=== PATIENT | male | born 1955 | race African-American/Black ===

== ENCOUNTER 2017-03-31 19:39 | Inpatient (IN) | payer OTHER ==
[~2017-03-31] VITALS: Ht 165.1 cm; Wt 62.1 kg
--- NOTE | ~2017-03-31 | EKG ---
[address] [address] ELECTROCARDIOGRAM REPORT Name: CORINA LEON Room #: 210-[facility] IN .R.#: [id number] Admission: 03/31/17 Attend Phys: Shivam Caballero MD Discharge: Date of : 55 Report #: [id number] THIS REPORT FOR: //name// [facility] Test Date: 2017-04-03 Test Time: 08:09:50 Pat Name: CORINA LEON Department: Room: 210 Gender: M Help Desk Consultant: KELLY : 1955 Requested By: Arias Montesinos Order Number: [id number] MD: Chidi Anthony Measurements Intervals [place] Rate: 82 P: 64 ME: 139 QRS: 24 QRSD: 78 T: 59 QT: 387 QTc: 452 Interpretive Statements Sinus rhythm Abnormal T, unchanged Minimal ST elevation, inferior leads Electronically Signed On 04-04-2017 22:19:37 CDT by Chidi Anthony [email or web address] <ELECTRONICALLY SIGNED> By: Chidi Anthony MD 04/04/17 2219 0809 8 Chidi Anthony MD /ADÁN
--- NOTE | ~2017-03-31 | EKG ---
[address] [place] [address] ELECTROCARDIOGRAM REPORT Name: CORINA LEON Room #: 218-P ADM IN M.R.#: [id number] Admission: 03/31/17 Attend Phys: Shivam Caballero MD Discharge: Date of : 55 Report #: [id number] THIS REPORT FOR: //name// [facility] Test Date: 2017-04-01 Test Time: 08:57:52 Pat Name: CORINA LEON Department: Room: 218 P Gender: M Research Staff Member: loc : 1955 Requested By: Erika Oranets Order Number: [id number] MD: Measurements Intervals [place] Rate: 83 P: 136 [place]: 146 QRS: 38 QRSD: 78 T: 119 QT: 438 QTc: 515 Interpretive Statements Sinus or ectopic atrial rhythm Borderline low voltage, extremity leads Abnormal T, consider ischemia, anterior leads Prolonged QT interval Compared to ECG 03/31/2017 19:53:57 Ectopic atrial rhythm now present Possible ischemia now present Prolonged QT interval now present Sinus rhythm no longer present T-wave abnormality still present [email or web address] By: 0857 0857 [place] /EPI
--- NOTE | ~2017-03-31 | 2DMMODE ---
[facility] [place] [address] 2 D/M-MODE ECHOCARDIOGRAM Name: CORINA LEON Room #: 218-P [facility] IN .R.#: [id number] Admission: 03/31/17 Attend Phys: Shivam Caballero Discharge: Date of : 55 Date of Service: 04/01/17 1401 Report #: [id number] THIS REPORT FOR: //name// APPROVED REPORT Study performed: 04/01/2017 11:38:41 EXAM: Comprehensive 2D, Doppler, and color-flow Echocardiogram Patient Location: Bedside Room #: 218 Blood Pressure: 156/86 mmHg HR: 66 bpm Rhythm: Irregular Other Information Study Quality: Fair Technically limited study due to lung artifact and limited mobility; patient status post Cath. Indications Pre-Op CABG, NSTEMI. Hx: HLP 2D Dimensions RVDd: 29.16 mm LVEF(%): 48.86 (>50%) IVSd: 12.00 (7-11mm) LVOT Diam: 19.78 (18-24mm) LVDd: 44.40 mm PWd: 11.59 (7-11mm) Ascending Ao: 29.92 (22-36mm) LVDs: 33.52 (25-40mm) Aortic Root: 28.58 mm Kruse's LVEF: 48.86 % Volumes Left Atrial Volume (Systole) Single Plane 4CH: 23.63 mL Single Plane 2CH: 30.43 mL Aortic Valve AoV Peak Clinton.: 1.47 m/s AO Peak Gr.: 8.69 mmHg LVOT Max P.44 mmHg LVOT Max V: 1.05 m/s JAKE Vmax: 2.20 cm2 Mitral Valve [facility] [place] [address] [place] [address] 2 D/M-MODE ECHOCARDIOGRAM Name: CORINA LEON Tonny Room #: 218-P [facility] IN ..#: [id number] Admission: 03/31/17 Attend Phys: Shivam Caballero Discharge: Date of : 55 Date of Service: 04/01/17 1401 Report #: [id number] E/A Ratio: 0.8 MV Decel. Time: 263.00 ms MV E Max Clinton.: 0.58 m/s MV A Clinton.: 0.72 m/s MV PHT: 76.27 ms IVRT: 92.27 ms Tricuspid Valve RAP Estimate: 5.00 mmHg Left Ventricle The left ventricle is normal size. Mild concentric left ventricular hypertrophy. Left ventricular systolic function is normal. LVEF is 50%. Right Ventricle The right ventricle is normal size. The right ventricular systolic function is normal. Atria The left atrium size is normal. The right atrium size is normal. Aortic Valve The aortic valve is normal in structure. No aortic regurgitation is present. There is no aortic valvular stenosis. Mitral Valve The mitral valve is normal in structure. There is no mitral valve regurgitation noted. No evidence of mitral valve stenosis. Tricuspid Valve The tricuspid valve is normal in structure. There is no tricuspid valve regurgitation noted. Pulmonic Valve Pulmonic valve is not well visualized. Great Vessels The aortic root is normal in size. The ascending aorta is normal in size. IVC is normal in size and collapses >50% with inspiration. Pericardium There is no pericardial effusion. [facility] [place] [address] 2 D/M-MODE ECHOCARDIOGRAM Name: CORINA LEON Room #: 218-P [facility] IN .R.#: [id number] Admission: 03/31/17 Attend Phys: Shivam Caballero Discharge: Date of : 55 Date of Service: 04/01/17 1401 Report #: [id number] <Conclusion> The left ventricle is normal size. Mild concentric left ventricular hypertrophy. Left ventricular systolic function is normal. The right ventricle is normal size. The left atrium size is normal. The aortic valve is normal in structure. The mitral valve is normal in structure. There is no pericardial effusion. <ELECTRONICALLY SIGNED> By: Aubrey Quintero MD 04/01/171400 00 1401 Aubrey Quintero MD /INF
--- NOTE | ~2017-03-31 | EKG ---
[address] [address] ELECTROCARDIOGRAM REPORT Name: CORINA LEON Room [facility]: 210[facility] IN .R.#: [id number] Admission: 03/31/17 Attend Phys: Shivma Caballero MD Discharge: 04/07/17 Date of : 55 Report #: [id number] THIS REPORT FOR: //name// 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 : 1955 Requested By: Juan Barrera Order Number: [id number] MD: Chidi Anthony Measurements Intervals [place] Rate: 76 P: 43 DE: 152 QRS: 45 QRSD: 99 T: 51 QT: 401 QTc: 451 Interpretive Statements Sinus rhythm Abnormal T, consider ischemia, anterior leads ST elevation, consider inferior injury Compared to ECG 04/03/2017 08:09:50 Possible ischemia now present Myocardial infarct finding now present T-wave abnormality still present ST (T wave) deviation still present Electronically Signed On 04-12-2017 7:43:03 CDT by Chidi Anthony [email or web address] <ELECTRONICALLY SIGNED> By: Chidi Anthony MD 04/12/17 0743 1328 1328 Chidi Anthony MD /EPI
--- NOTE | ~2017-03-31 | O ---
[facility] [place] [address] OPERATIVE REPORT Name: CAROLYNCORINA CHAPIN Tonny ESPINOZA Room #: 210-P [facility] IN ..#: [id number] Admission: 03/31/17 Attend Phys: Shivam Caballero MD Discharge: 04/07/17 Date of : 55 Report #: [id number] THIS REPORT FOR: //name// CC: JANET physician/PCP Shivam Caballero DATE OF SERVICE: 03/31/2017 PREOPERATIVE DIAGNOSIS: Coronary artery disease. POSTOPERATIVE DIAGNOSIS: Coronary artery disease. OPERATION: Coronary artery bypass times 1, left internal mammary artery to left anterior descending artery. SURGEON: Mirza Man MD DRIVER SUPERVISOR: Jaguar. ANESTHESIA: General. INDICATIONS: The patient is a 62-year-old with high grade proximal left anterior descending stenosis, circumflex, have no important disease. Left ventricular function is satisfactory. The patient presents with unstable angina. FINDINGS AND TECHNIQUE: After general anesthesia was established, exposure was obtained through median sternotomy. Left internal mammary artery was harvested from chest wall. Pericardial well was made. Cannulation sutures were placed. Heparin was given. Aorta was cannulated. Right atrium was cannulated. Cardioplegia needle was positioned in the aortic root. Retrograde cardioplegic catheter was placed in coronary sinus. Cardiopulmonary bypass was established. The aorta was cross clamped. Antegrade and retrograde cardioplegia were given. Ice was poured in the pericardial well. The heart was stopped. During electromechanical arrest, the distal anastomosis was performed and end-to-side anastomosis was made between the left internal mammary artery and the left anterior descending artery. This anastomosis was checked with the temperature technique. Warm cardioplegia was given followed by warm continuous blood to the coronary sinusitis. When this infusion was complete, the crossclamp was removed. De-airing maneuvers were performed. The anastomosis was inspected and found to be satisfactory. As the patient warmed, nice cardiac activity resumed, chest tubes and pacing wires were placed. When the patient was warmed, he was weaned from cardiopulmonary bypass. Venous cannula was removed. Protamine was given. The [facility] [address] [place] [address] OPERATIVE REPORT Name: CORINA LEON SR Room #: 210-P [facility] IN ..#: [id number] Admission: 03/31/17 Attend Phys: Shivam Caballero MD Discharge: 04/07/17 Date of : 55 Report #: [id number] aortic cannula was removed. Good Doppler signal was audible in the internal mammary artery. When hemostasis was satisfactory, chest was irrigated with antibiotic solution and closed in the usual fashion. The patient was taken to the intensive care unit in good condition having tolerated the procedure well. By: 190 20 Mirza Man MD /nt
--- NOTE | ~2017-03-31 | EKG ---
[address] [address] ELECTROCARDIOGRAM REPORT Name: CORINA LEON Room #: 242-P ADM IN M.R.#: [id number] Admission: 03/31/17 Attend Phys: Shivam Caballero MD Discharge: Date of : 55 Report #: [id number] THIS REPORT FOR: //name// [facility] Test Date: 2017-04-02 Test Time: 13:55:16 Pat Name: CORINA LEON Department: Room: [facility] Gender: M City Constable: enrique : 1955 Requested By: Arias Montesinos Order Number: [id number] MD: Chidi Anthony Measurements Intervals [place] Rate: 86 P: 64 FL: 154 QRS: 28 QRSD: 86 T: 70 QT: 385 QTc: 461 Interpretive Statements Sinus rhythm Nonspecific T abnrm, anterolateral leads Electronically Signed On 04-02-2017 16:59:01 CDT by Chidi Anthony [email or web address] <ELECTRONICALLY SIGNED> By: Chidi Anthony MD 04/02/17 1659 1355 1355 MD NEGRO Zhu
--- NOTE | ~2017-03-31 | EKG ---
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 : 1955 Requested By: Nisa Montoya Order Number: [id number] MD: Ferny Garcia Measurements Intervals [place] Rate: 83 P: 66 MS: 148 QRS: 46 QRSD: 80 T: 76 QT: 410 QTc: 482 Interpretive Statements Sinus rhythm RSR' in V1 or V2, right VCD or RVH Abnrm T, consider ischemia, anterolateral lds Compared to ECG 04/01/2017 08:57:52 no significant change was found Electronically Signed On 04-02-2017 8:01:00 CDT by Ferny Garcia [email or web address] <ELECTRONICALLY SIGNED> By: Ferny Garcia MD, [facility] 04/02/17 0801 1431 1431 Ferny Garcia MD, [facility] /EPI
--- NOTE | ~2017-03-31 | H ---
[facility] [address] [address] HISTORY AND PHYSICAL Name: CORINA LEON Room #: 210-P ADM IN M.R.#: [id number] Admission: 03/31/17 Attend Phys: Shivam Caballero MD Discharge: Date of : 55 Report #: [id number] THIS REPORT FOR: //name// CC: JANET physician/PCP Shivam Caballero DATE OF SERVICE: 03/31/2017 ATTENDING PHYSICIAN: Dr. Crow. PRIMARY CARE PHYSICIAN: None. CHIEF COMPLAINT: Chest pain. HISTORY OF PRESENT ILLNESS: The patient is a 62-year-old -Pak[place] male who is in the process of moving back to [place] from [place]. In the process of moving, he has been having some intermittent episodes of chest pain that had been occurring only when he is exerting himself. He states that is in his midsternum and he feels like someone is stepping on his chest. He does have associated diaphoresis and shortness of breath with this. He denies any associated vomiting, but has been nauseous and he does not have any radiation of the pain. When he experiences this, he usually sits and rest and eventually his pain goes away. He had another episode today after he was moving some boxes. He denies any prior cardiac history. He has never had a stress test or cardiac evaluation in the past. Episodes of chest pain started happening around [place] and he has had at least 3 episodes of chest pain this week. He is on medications for hyperlipidemia. He has never been on any blood pressure medication. He was given some aspirin in the ER and has not had any recurrence of the pain. PAST MEDICAL HISTORY: Prostate cancer, hyperlipidemia. PAST SURGICAL HISTORY: Right above knee amputation, right total knee replacement prior to his amputation and multiple left leg surgeries including multiple knee surgeries and lien placement in his knee joint, making him unable to bent his left knee. ALLERGIES: METHACARBANOL causes unknown reaction and SHELLFISH, unknown reaction. HOME MEDICATIONS: Simvastatin 20 mg p.o. at bedtime and Zyrtec daily, hydroxyzine 25 mg at bedtime p.r.n., diclofenac, potassium p.r.n. and Pataday eyedrops 1 drop at bedtime. SOCIAL HISTORY: The patient had been a smoker, he quit just last year after smoking up to a pack and a half per day for at least 45 years. He is a [facility] [address] [place] [address] HISTORY AND PHYSICAL Name: CORINA LEON Room #: 210-P [facility]#: [id number] Admission: 03/31/17 Attend Phys: Shivam Caballero MD Discharge: Date of : 55 Report #: [id number] and he does drink alcohol regularly. He drinks 3-4 20 ounce Smirnoff coolers each day. He denies any drug use. In the process of moving back to [place] from [place], he is now living with his ex- and his daughters. He does ambulate using crutches. FAMILY HISTORY: His mother from possibly heart problems. He knows she did have a pacemaker and was also diabetic. His father is , he does not really know why. REVIEW OF SYSTEMS: He has been evaluated in [place] for prostate cancer. He actually says this was diagnosed 10 years ago, but he has never gone through any treatment. He is not really clear why, as far as he can remember his PSA level is 17.5 and that he did see a urologist when he was in [place] and they did some sort of procedure in which he found "two spots." He has never had any radiation treatment or surgery, but says both of these options have been presented to him, since he knew he is moving to [place] he wanted to find a new urologist and discuss the treatment options with his family. All other 12-point review of systems was reviewed with the patient, otherwise negative unless stated in the HPI. PHYSICAL EXAMINATION: GENERAL: The patient is an alert male in no acute distress. VITAL SIGNS: Temperature is 36.9, heart rate 75, respirations 11, blood pressure is 174/102, oxygen 99% on room air. HEENT: PERRLA. Sclerae is nonicteric. Oral mucosa is pink and moist. NECK: Supple, no JVD noted. CARDIOVASCULAR: Normal S1, S2. No murmurs, rubs or gallops. RESPIRATORY: Breath sounds are clear bilaterally. No wheezing or rhonchi. Breathing is nonlabored. ABDOMEN: Soft, round, nontender, nondistended with positive bowel sounds. VASCULAR: Trace bilateral lower extremity edema noted. Pedal pulses are 2+. NEUROLOGIC: The patient is alert and oriented x 3. Speech is clear. He is answering questions appropriately and following commands. No focal weakness noted. LABORATORY DATA AND DIAGNOSTICS: WBC is 16.1, hemoglobin 14.5, platelets 255, sodium 142, potassium 3.3, BUN 11, creatinine 1.3, glucose 131 and LFTs are within normal limits. Troponin is 0.73, EKG showing some sinus rhythm, biphasic T waves in leads V2 and V3, which are nonspecific and chest x-ray was negative. ASSESSMENT AND PLAN: 1. Non-ST elevation myocardial infarction. The patient does have anginal equivalent of chest pain. We will go ahead and check serial cardiac enzymes and consult cardiology. He was given aspirin in the ER and no further blood thinners were requested by Cardiology, continue to monitor on telemetry. 2. Hypertension. The patient is not on any blood pressure medications. We [facility] [address] [place] [address] HISTORY AND PHYSICAL Name: CORINA LEON Room #: 210-P [facility] IN [facility].#: [id number] Admission: 03/31/17 Attend Phys: Shivam Caballero MD Discharge: Date of : 55 Report #: [id number] will add hydralazine p.r.n. and evaluate for the need to start any antihypertensives while he is here. 3. Prostate cancer. The patient is needing to finding a urologist here in [place] where he can establish care and treatment options 4. Hyperlipidemia. Check a lipid panel and continue statin. 5. Alcohol use. We will monitor for any signs of withdrawal. 6. Hypokalemia. This will be replaced. Repeat labs in the morning. 7. Deep venous thrombosis prophylaxis, place sequential compression devices. We will continue to follow the patient closely throughout the hospitalization and make changes based on clinical status. <ELECTRONICALLY SIGNED> By: CHEYANNE Martin 04/05/17 0604 0520 0632 Erika Orantes, PRODUCTION SORTER /nt
--- NOTE | ~2017-03-31 | EKG ---
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
--- NOTE | ~2017-03-31 | CATHLAB ---
[facility] [place] [place] [address] INVASIVE PROCEDURE REPORT Name: CORINA LEON SR Room #: 210-P [facility]#: [id number] Admission: 03/31/17 Attend Phys: Shivam Caballero Discharge: 04/07/17 Date of : 55 Date of Service: 04/14/17 0926 Report #: [id number] THIS REPORT FOR: //name// CC: JANET physician/PCP Shivam Caballero DATE OF SERVICE: 04/01/2017 INDICATIONS: This is a 62-year-old male patient with a non-ST segment elevation myocardial infarction. PROCEDURES: 1. Left heart catheterization. 2. Selective left and right coronary angiography. 3. Measurement of left ventricular end diastolic pressures. 4. Supervision of conscious sedation. GARBAGE PICK UP WORKER: Gonzalo Lock M.D. BRIEF DESCRIPTION OF PROCEDURE: After informed consent was obtained, the patient was brought to the cardiac catheterization laboratory in stable condition. The patient's right groin was prepped and draped in the usual sterile manner after which lidocaine was then instilled. Utilizing a modified Seldinger technique, the right femoral artery was then accessed. Under fluoroscopic visualization using selective coronary catheters, the right and left coronaries were opacified and visualized. The left ventriculogram was likewise imaged per standard protocol with EDP being measured. Subsequent to this, the sheath was removed, hemostasis achieved. The patient tolerated the procedure well. There were no complications. FINDINGS: 1. RHYTHM: The patient's rhythm was sinus throughout the entire procedure. 2. HEMODYNAMICS: A. Aortic pressure 164/84. B. Left ventricular end diastolic pressure 8-10. 3. FLUOROSCOPY: Under fluoroscopic visualization, there was evidence of extensive calcific plaquing along the epicardial coronary arteries. There was no significant plaquing along the valvular or intramyocardial structures of the heart. 4. ANGIOGRAPHY: This is a left dominant system. A. Left main is normal in origin and caliber, bifurcates in left anterior descending, left circumflex is free of high-grade disease. B. Left anterior descending is a moderate caliber type 3 vessel which courses in the anterior interventricular sulcus. At the origin of the proximal LAD, there is a 90% eccentric lesion which is perpendicular to the initial portion of the vessels. Beyond this, the vessel reconstitutes itself giving rise to [facility] [address] [place] [address] INVASIVE PROCEDURE REPORT Name: CORINA LEON Tonny ESPINOZA Room #: 210-P [facility] IN [facility].#: [id number] Admission: 03/31/17 Attend Phys: Shivam Caballero Discharge: 04/07/17 Date of : 55 Date of Service: 04/14/17 0926 Report #: [id number] diagonal and septal branches, all of which are free of high-grade disease as they course towards the apex and terminates in the left ventricular inferoposterior apical wall. C. Left circumflex: This is a moderate caliber vessel, which courses laterally in the AV groove giving rise to marginal branches free of high-grade disease. D. Right coronary artery is a small to moderate caliber vessel, which has a moderate lesion giving rise to RV marginal branch. IMPRESSION: 1. Coronary artery disease, single vessel, significant, a poor candidate for percutaneous revascularization. 2. Normal hemodynamics. RECOMMENDATIONS: In view of the patient having a lesion, which is best treated fci with bypass grafting, surgical consultation was obtained. <ELECTRONICALLY SIGNED> By: Gonzalo Lock MD 04/15/17 2113 0926 1420 Gonzalo Lock MD /nt
[2017-03-31 19:48] VITALS: BP 174/102
[2017-03-31] MEDS ORDERED: ALL DAY ALLERGY10 M3 (20:03)
[2017-03-31] MEDS ORDERED: ZOCOR20 MG PO (20:03)
[2017-03-31] MEDS ORDERED: DICLOFENAC POTA50 MG (20:04)
[2017-03-31] MEDS ORDERED: HYDROXYZINE HCL25 M1 (20:04)
[2017-03-31] MEDS ORDERED: PATADAY2.5 ML OPHTHALMIC (20:05)
[2017-03-31 20:17] LABS: ABSOLUTE NEUTROPHILS 8.9 thou/uL (1.4-8.2); BASOPHILS 1.3 % (0.0-2.0); EOSINOPHILS 0.8 % (0.0-3.0); HEMATOCRIT 41.7 % (42.0-52.0); HEMOGLOBIN 14.5 gm/dL (14.0-18.0); MCH 32.9 pg (26.0-34.0); MCHC 34.7 g/dL (28.0-37.0); MCV 94.8 fL (80.0-100.0); MONOCYTES 9.4 % (1.0-8.0); PLATELET COUNT 255 thou/uL (150-400); POLYS 55.5 % (36.0-66.0); RDW 13.8 % (10.5-14.5); WBC 16.1 thou/uL (4.0-11.0)
[2017-03-31 20:20] LABS: MANUAL DIFF NO
[2017-03-31 20:23] LABS: ANION GAP 14 mmol/L (7-16); BUN 11 mg/dL (7-18); CALCIUM 8.9 mg/dL (8.5-10.1); CHLORIDE 105 mmol/L (98-107); CO2 23 mmol/L (21-32); CREATININE 1.3 mg/dL (0.7-1.3); GLUCOSE 131 mg/dL (74-106); POTASSIUM 3.3 mmol/L (3.5-5.1); SODIUM 142 mmol/L (136-145)
[2017-03-31 20:34] LABS: ALBUMIN 3.7 g/dL (3.4-5.0); ALKALINE PHOSPHATASE 116 U/L (46-116); DIRECT BILIRUBIN < 0.1 mg/dL (<0.1-0.3); NT-PRO BRAIN NAT PEPTIDE 53 pg/mL (<300); SGOT 35 U/L (15-37); SGPT 47 U/L (30-65); TOTAL BILIRUBIN 0.3 mg/dL (<0.1-1.0); TOTAL PROTEIN 8.1 g/dL (6.4-8.2)
[2017-03-31 20:36] LABS: TROPONIN-I 0.73 ng/mL (<0.04-0.07)
[2017-03-31 21:26] VITALS: BP 167/86
[2017-03-31 22:03] VITALS: BP 171/83
[2017-04-01] VITALS (13 sets, daily range): BP systolic 124–154; BP diastolic 52–91
[2017-04-01] MEDS ORDERED: ASPIRIN325 PO (00:56)
[2017-04-01 02:24] LABS: ANION GAP 11 mmol/L (7-16); BUN 11 mg/dL (7-18); CALCIUM 8.5 mg/dL (8.5-10.1); CHLORIDE 107 mmol/L (98-107); CHOLESTEROL 157 mg/dL (<200); CO2 24 mmol/L (21-32); GLUCOSE 100 mg/dL (74-106); HDL CHOLESTEROL 45 mg/dL (>40); LDL CHOLESTEROL 97 mg/dL (<100); POTASSIUM 3.5 mmol/L (3.5-5.1); SODIUM 142 mmol/L (136-145); TC:HDL 3.5 Ratio (Not establshd); TRIGLYCERIDE 76 mg/dL (<150); VLDL 15 mg/dL (<40)
[2017-04-01 02:36] LABS: SERUM ASSESSMENT Clear
[2017-04-01 08:56] LABS: CALCIUM 8.8 mg/dL (8.5-10.1); MAGNESIUM 2.2 mg/dL (1.8-2.4); POTASSIUM 3.7 mmol/L (3.5-5.1)
[2017-04-01 09:17] LABS: HEMATOCRIT 42.3 % (42.0-52.0); HEMOGLOBIN 14.7 gm/dL (14.0-18.0); MCH 32.9 pg (26.0-34.0); MCHC 34.8 g/dL (28.0-37.0); MCV 94.7 fL (80.0-100.0); RBC 4.47 mil/uL (4.50-6.00); RDW 13.8 % (10.5-14.5); WBC 12.4 thou/uL (4.0-11.0)
[2017-04-01 09:33] LABS: APTT 27.4 Seconds (24.5-32.8); PROTIME 10.7 Seconds (9.3-11.4)
[2017-04-01 13:39] LABS: HIV-1 P24 AG Nonreactive (Nonreactive)
[2017-04-01 23:11] LABS: HBsAG-EMPLOYEE EXPOSURE Negative (Negative); HCV AB-EMPLOYEE EXPOSURE <0.1 (0.0-0.9)
[2017-04-01 23:27] LABS: URINE BILIRUBIN NEGATIVE (Negative); URINE BLOOD 2+ (Negative); URINE COLOR YELLOW; URINE GLUCOSE-RANDOM* NEGATIVE (Negative); URINE KETONES TRACE (Negative); URINE LEUKOCYTES-REFLEX NEGATIVE (Negative); URINE PROTEIN (DIPSTICK) NEGATIVE (Negative); URINE SPECIFIC GRAVITY 1.025 (1.003-1.035); URINE UROBILINOGEN 0.2 E.U./dl (0.2-1.0)
[2017-04-01 23:35] LABS: AMP/METHAMP Negative (Negative); BARBITURATES Negative (Negative); BENZODIAZEPINES POSITIVE (Negative); COCAINE Negative (Negative); METHADONE Negative (Negative); OPIATES POSITIVE (Negative); PCP Negative (Negative); THC POSITIVE (Negative)
[2017-04-02 01:13] LABS: SQUAMOUS 0-3 Few /LPF (0-3)
[2017-04-02 01:16] LABS: CASTS None Seen /LPF (None Seen); CRYSTALS None Seen /LPF (None Seen); URINE RBC 3-10 Few /HPF (0-2); URINE WBC-REFLEX 0-5 Rare /HPF (0-5)
[2017-04-02 03:10] LABS: HEMATOCRIT 42.5 % (42.0-52.0); HEMOGLOBIN 14.4 gm/dL (14.0-18.0); MCH 32.2 pg (26.0-34.0); MCHC 33.8 g/dL (28.0-37.0); MCV 95.3 fL (80.0-100.0); RBC 4.46 mil/uL (4.50-6.00); RDW 13.6 % (10.5-14.5); WBC 17.7 thou/uL (4.0-11.0)
[2017-04-02 03:15] LABS: GLYCOHEMOGLOBIN (HGB A1C) 5.1 % (4.8-5.6)
[2017-04-02 03:28] VITALS: BP 144/84
[2017-04-02 03:41] LABS: ALBUMIN 3.4 g/dL (3.4-5.0); CALCIUM 8.6 mg/dL (8.5-10.1); CREATININE 1.2 mg/dL (0.7-1.3); POTASSIUM 4.3 mmol/L (3.5-5.1); TOTAL BILIRUBIN 0.3 mg/dL (<0.1-1.0); TOTAL PROTEIN 7.3 g/dL (6.4-8.2)
[2017-04-02 07:15] VITALS: BP 128/72
[2017-04-02 11:51] LABS: POC BE -2 mmol/L (-2.0 to +3.0); POC CA IONIZED 4.8 mg/dL (4.5-5.3); POC FiO2 100 %; POC GLUCOSE 115 mg/dL (70-99); POC HCO3 22.7 mmol/L (22.0-26.0); POC HEMOGLOBIN 12.9 g/dL (14.0-18.0); POC POTASSIUM 3.8 mmol/L (3.5-5.1); POC SODIUM 140 mmol/L (136-145); POC pCO2 34.2 mmHg (35.0-45.0)
[2017-04-02 11:51] LABS: POC BE -5 mmol/L (-2.0 to +3.0); POC CA IONIZED 4.7 mg/dL (4.5-5.3); POC FiO2 100 %; POC GLUCOSE 121 mg/dL (70-99); POC HCO3 19.7 mmol/L (22.0-26.0); POC HEMOGLOBIN 12.6 g/dL (14.0-18.0); POC POTASSIUM 3.9 mmol/L (3.5-5.1); POC SODIUM 138 mmol/L (136-145); POC pCO2 31.3 mmHg (35.0-45.0); POC pH 7.407 (7.360-7.450)
[2017-04-02 11:51] LABS: POC BE 1 mmol/L (-2.0 to +3.0); POC CA IONIZED 5.4 mg/dL (4.5-5.3); POC FiO2 100 %; POC GLUCOSE 111 mg/dL (70-99); POC HCO3 24.7 mmol/L (22.0-26.0); POC HEMOGLOBIN 9.5 g/dL (14.0-18.0); POC POTASSIUM 4.3 mmol/L (3.5-5.1); POC SODIUM 137 mmol/L (136-145); POC pCO2 36.5 mmHg (35.0-45.0); POC pH 7.439 (7.360-7.450)
[2017-04-02 11:51] LABS: POC BE -6 mmol/L (-2.0 to +3.0); POC CA IONIZED 4.3 mg/dL (4.5-5.3); POC FiO2 100 %; POC GLUCOSE 118 mg/dL (70-99); POC HCO3 19.8 mmol/L (22.0-26.0); POC HEMOGLOBIN 10.5 g/dL (14.0-18.0); POC POTASSIUM 4.6 mmol/L (3.5-5.1); POC SODIUM 136 mmol/L (136-145); POC pCO2 34.7 mmHg (35.0-45.0); POC pH 7.364 (7.360-7.450)
[2017-04-02 11:51] LABS: POC BE -3 mmol/L (-2.0 to +3.0); POC CA IONIZED 4.2 mg/dL (4.5-5.3); POC FiO2 100 %; POC GLUCOSE 121 mg/dL (70-99); POC HCO3 22.4 mmol/L (22.0-26.0); POC HEMOGLOBIN 9.9 g/dL (14.0-18.0); POC POTASSIUM 4.6 mmol/L (3.5-5.1); POC SODIUM 135 mmol/L (136-145); POC pCO2 37.6 mmHg (35.0-45.0); POC pH 7.383 (7.360-7.450)
[2017-04-02 12:10] VITALS: BP 144/84
[2017-04-02 12:17] LABS: ABG SAMPLE TYPE ARTERIAL; BE(vivo) -2.6 mmol/L (-2 to +3); HCO3 22.6 mmol/L (22.0-26.0); LACTATE 1.28 mmol/L (0.5-2.0); O2(CT) 18.2 mL/dL (15.0-23.0); O2Hb 96.2 % (92.0-98.0); PCO2 40.8 mmHg (35.0-45.0); PO2 103.5 mmHg (80.0-100.0); pH 7.362 (7.360-7.450); sO2 97.6 % (92.0-98.0); tCO2 23.9 mmol/L (24.0-30.0)
[2017-04-02 12:18] LABS: ABG COMMENT A/C; STICK SITE LINE; TIDAL VOLUME 550 ml
[2017-04-02 12:24] LABS: HEMATOCRIT 36.8 % (42.0-52.0); HEMOGLOBIN 12.9 gm/dL (14.0-18.0); MCH 32.9 pg (26.0-34.0); MCV 93.9 fL (80.0-100.0); RBC 3.92 mil/uL (4.50-6.00); WBC 27.4 thou/uL (4.0-11.0)
[2017-04-02 12:35] LABS: CALCIUM 8.1 mg/dL (8.5-10.1); CREATININE 0.8 mg/dL (0.7-1.3); POTASSIUM 3.8 mmol/L (3.5-5.1)
[2017-04-02 13:15] VITALS: BP 107/59
[2017-04-02 13:30] VITALS: BP 108/56
[2017-04-02 14:00] VITALS: BP 144/84
[2017-04-02 16:17] LABS: HEMATOCRIT 37.6 % (42.0-52.0); HEMOGLOBIN 12.8 gm/dL (14.0-18.0); MCH 32.4 pg (26.0-34.0); MCV 95.2 fL (80.0-100.0); RBC 3.94 mil/uL (4.50-6.00); RDW 14.2 % (10.5-14.5); WBC 22.8 thou/uL (4.0-11.0)
[2017-04-02 16:30] LABS: POTASSIUM 4.6 mmol/L (3.5-5.1)
[2017-04-02 16:34] LABS: ABG SAMPLE TYPE ARTERIAL; HCO3 14.6 mmol/L (22.0-26.0); LACTATE 1.44 mmol/L (0.5-2.0); O2(CT) 13.7 mL/dL (15.0-23.0); O2Hb 96.7 % (92.0-98.0); PCO2 31.5 mmHg (35.0-45.0); PO2 136.6 mmHg (80.0-100.0); pH 7.284 (7.360-7.450); sO2 98.5 % (92.0-98.0); tCO2 15.6 mmol/L (24.0-30.0)
[2017-04-02 16:35] LABS: Pressure Support 8 cm H20; STICK SITE LINE
[2017-04-02 18:33] LABS: ABG SAMPLE TYPE ARTERIAL; BE(vivo) -6.2 mmol/L (-2 to +3); HCO3 18.9 mmol/L (22.0-26.0); LACTATE 2.28 mmol/L (0.5-2.0); O2Hb 97.2 % (92.0-98.0); PO2 125.7 mmHg (80.0-100.0); pH 7.338 (7.360-7.450); sO2 98.3 % (92.0-98.0)
[2017-04-02 18:34] LABS: Face Shield 50 %; STICK SITE LINE
[2017-04-03 04:58] LABS: HEMATOCRIT 33.9 % (42.0-52.0); HEMOGLOBIN 11.6 gm/dL (14.0-18.0); MCH 32.5 pg (26.0-34.0); MCHC 34.1 g/dL (28.0-37.0); MCV 95.3 fL (80.0-100.0); RBC 3.56 mil/uL (4.50-6.00); RDW 14.1 % (10.5-14.5); WBC 19.5 thou/uL (4.0-11.0)
[2017-04-03 05:05] LABS: CALCIUM 8.1 mg/dL (8.5-10.1)
[2017-04-03 12:52] VITALS: BP 103/66
[2017-04-04] VITALS (9 sets, daily range): BP systolic 116–158; BP diastolic 66–88
[2017-04-04 05:59] LABS: HEMATOCRIT 32.9 % (42.0-52.0); HEMOGLOBIN 11.2 gm/dL (14.0-18.0); MCH 32.3 pg (26.0-34.0); MCHC 34.2 g/dL (28.0-37.0); MCV 94.5 fL (80.0-100.0); RBC 3.48 mil/uL (4.50-6.00); RDW 14.2 % (10.5-14.5); WBC 19.9 thou/uL (4.0-11.0)
[2017-04-04 06:11] LABS: CALCIUM 7.8 mg/dL (8.5-10.1); CREATININE 0.8 mg/dL (0.7-1.3); POTASSIUM 3.6 mmol/L (3.5-5.1)
[2017-04-05 04:10] VITALS: BP 129/79
[2017-04-05 05:05] LABS: ABSOLUTE NEUTROPHILS 12.4 thou/uL (1.4-8.2); BASOPHILS 0.6 % (0.0-2.0); EOSINOPHILS 1.4 % (0.0-3.0); HEMATOCRIT 35.7 % (42.0-52.0); HEMOGLOBIN 12.4 gm/dL (14.0-18.0); LYMPHOCYTES 20.7 % (24.0-44.0); MCH 32.8 pg (26.0-34.0); MCHC 34.7 g/dL (28.0-37.0); MCV 94.7 fL (80.0-100.0); MONOCYTES 9.8 % (1.0-8.0); PLATELET COUNT 181 thou/uL (150-400); POLYS 67.5 % (36.0-66.0); RBC 3.77 mil/uL (4.50-6.00); WBC 18.4 thou/uL (4.0-11.0)
[2017-04-05 05:07] LABS: CALCIUM 8.6 mg/dL (8.5-10.1); CREATININE 0.9 mg/dL (0.7-1.3); POTASSIUM 3.5 mmol/L (3.5-5.1)
[2017-04-05 05:26] LABS: MANUAL DIFF NO
[2017-04-05 07:02] VITALS: BP 140/84
[2017-04-05 16:21] VITALS: BP 144/74
[2017-04-05 19:33] VITALS: BP 146/78
[2017-04-06 03:28] VITALS: BP 96/64
[2017-04-06 07:00] VITALS: BP 103/66
[2017-04-06] MEDS ORDERED: LOPRESSOR50 PO (09:26)
[2017-04-06] MEDS ORDERED: MIRALAX17 GM PO (09:26)
[2017-04-06] MEDS ORDERED: VITAMIN D1000 UNI1 PO (09:26)
[2017-04-06] MEDS ORDERED: HYDROCODON-ACE1 EAC7 PO (09:26)
[2017-04-06] MEDS ORDERED: ASPIR 8181 MG PO (09:26)
[2017-04-06 11:05] VITALS: BP 94/58
[2017-04-06 16:05] VITALS: BP 119/60
[2017-04-06 19:10] VITALS: BP 94/59
[2017-04-06 21:17] VITALS: BP 122/67
[2017-04-07 03:01] LABS: HEMATOCRIT 37.6 % (42.0-52.0); HEMOGLOBIN 12.5 gm/dL (14.0-18.0); MCH 32.1 pg (26.0-34.0); MCHC 33.3 g/dL (28.0-37.0); MCV 96.2 fL (80.0-100.0); RBC 3.9 mil/uL (4.50-6.00); RDW 13.9 % (10.5-14.5); WBC 14.3 thou/uL (4.0-11.0)
[2017-04-07 04:15] VITALS: BP 147/92
[2017-04-07 07:58] VITALS: BP 97/61
[2017-04-07 08:58] VITALS: BP 97/61
== END 2017-04-07 11:05 | disposition home or self-care (01) | DRG 234 ==
LOC: ER 19:39 → 2N 21:08 → EROBS 21:08 → 2N 21:37 → TBA 04-02 09:19 → ICU 04-02 13:07 → 2N 04-04 14:51
PROVIDERS: Hospitalist; Internal Medicine; Internal Medicine Endocrinology, Diabetes & Metabolism; Nurse Practitioner Acute Care; Nurse Practitioner Gerontology; Physician Assistant; Surgery Vascular Surgery
PROC: 4A023N7 Measurement of Cardiac Sampling and Pressure, Left Heart, Percutaneous Approach (ICD-10-PCS; 2017-04-01)
PROC: B2111ZZ Fluoroscopy of Multiple Coronary Arteries using Low Osmolar Contrast (ICD-10-PCS; 2017-04-01)
PROC: 02100Z9 Bypass Coronary Artery, One Artery from Left Internal Mammary, Open Approach (ICD-10-PCS; principal; 2017-04-02)
PROC: 03B10ZZ Excision of Left Internal Mammary Artery, Open Approach (ICD-10-PCS; 2017-04-02)
PROC: 0BH17EZ Insertion of Endotracheal Airway into Trachea, Via Natural or Artificial Opening (ICD-10-PCS; 2017-04-02)
PROC: 5A1935Z Respiratory Ventilation, Less than 24 Consecutive Hours (ICD-10-PCS; 2017-04-02)
DX: I21.4 Non-ST elevation (NSTEMI) myocardial infarction (principal); I25.10 Atherosclerotic heart disease of native coronary artery without angina pectoris; E78.5 Hyperlipidemia, unspecified; Z96.651 Presence of right artificial knee joint; E83.51 Hypocalcemia; I10 Essential (primary) hypertension; E87.6 Hypokalemia; F10.10 Alcohol abuse, uncomplicated; Z85.46 Personal history of malignant neoplasm of prostate; H40.9 Unspecified glaucoma; Z88.8 Allergy status to other drugs, medicaments and biological substances; Z91.013 Allergy to seafood; Z87.891 Personal history of nicotine dependence; Z89.611 Acquired absence of right leg above knee; Z79.82 Long term (current) use of aspirin; Z83.3 Family history of diabetes mellitus; Z79.899 Other long term (current) drug therapy; Z82.3 Family history of stroke; Z82.49 Family history of ischemic heart disease and other diseases of the circulatory system
CPT/HCPCS: 10078; 10081; 47000; 47001; 47002; 47297; 48888; 50010; 50249; 50409; 50456; 50498; 51301; 52131; 52259; 53327; 53358; 54118; 56524; 56525; 56526; 56527; 56528; 56531; 56534; 56660; 56898; 62110; 62950; 64029; 65002; 65003; 65020; 65043; 65090; 65120

== ENCOUNTER 2020-10-07 16:26 | Emergency (ER) | payer OTHER ==
[~2020-10-07 16:26] MED LIST: ALL DAY ALLERGY10 M3; ASPIR 8181 MG PO; ASPIRIN325 PO; DICLOFENAC POTA50 MG; HYDROCODON-ACE1 EAC7 PO; HYDROXYZINE HCL25 M1; LOPRESSOR50 PO; MIRALAX17 GM PO; PATADAY2.5 ML OPHTHALMIC; VITAMIN D1000 UNI1 PO; ZOCOR20 MG PO
== END 2020-10-07 18:03 ==
LOC: ER 16:26 → EDBD 16:26 → ER 18:03
DX: M79.605 Pain in left leg (principal); Z53.21 Procedure and treatment not carried out due to patient leaving prior to being seen by health care provider

== ENCOUNTER 2020-11-28 11:01 | Emergency (ER) | payer OTHER ==
[~2020-11-28] VITALS: Ht 162.6 cm; Wt 86.2 kg
[2020-11-28 13:43] LABS: ABSOLUTE NEUTROPHILS 2.5 thou/uL (1.4-8.2); BASOPHILS 0.8 % (0.0-2.0); EOSINOPHILS 0.4 % (0.0-3.0); HEMOGLOBIN 16.4 gm/dL (14.0-18.0); LYMPHOCYTES 48.4 % (24.0-44.0); MCH 32.3 pg (26.0-34.0); MCHC 33.5 g/dL (28.0-37.0); MCV 96.5 fL (80.0-100.0); MONOCYTES 9.7 % (1.0-8.0); PLATELET COUNT 169 thou/uL (150-400); POLYS 40.7 % (36.0-66.0); RBC 5.08 mil/uL (4.50-6.00); RDW 13.3 % (10.5-14.5); WBC 6.1 thou/uL (4.0-11.0)
[2020-11-28 13:55] LABS: ANION GAP 9 mmol/L (7-16); BUN 16 mg/dL (7-18); CALCIUM 9.7 mg/dL (8.5-10.1); CHLORIDE 104 mmol/L (98-107); CO2 24 mmol/L (21-32); CREATININE 1.3 mg/dL (0.7-1.3); GLUCOSE 101 mg/dL (74-106); POTASSIUM 4.2 mmol/L (3.5-5.1); SODIUM 137 mmol/L (136-145)
[2020-11-28 13:59] LABS: ALBUMIN 4.1 g/dL (3.4-5.0); DIRECT BILIRUBIN 0.1 mg/dL (<0.1-0.2); TOTAL BILIRUBIN 0.5 mg/dL (0.2-1.0); TOTAL PROTEIN 8.5 g/dL (6.4-8.2)
[2020-11-28 14:02] LABS: TROPONIN-I <0.06 ng/mL (<0.06)
[2020-11-28 15:00] VITALS: BP 106/61
--- NOTE | 2020-11-29 15:11 | EKG ---
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: : 1955 Requested By: Bk Swain Order Number: [id number] MD: Ferny Garcia Measurements Intervals [place] Rate: 71 P: 76 [place]: 154 QRS: 32 QRSD: 83 T: 44 QT: 401 QTc: 436 Interpretive Statements Sinus arrhythmia Abnormal R-wave progression, late transition Nonspecific T wave abnormality Compared to ECG 04/06/2017 13:28:18 T wave abnormality is no longer present Electronically Signed On 11-29-2020 15:11:12 MAJOR APPLIANCE ASSEMBLY SUPERVISOR by Ferny Garcia [email or web address] <ELECTRONICALLY SIGNED> By: Ferny Garcia MD, [facility] 11/29/20 1511 1105 110 Ferny Garcia MD, FACC /EPI
== END 2020-11-28 15:01 | disposition home or self-care (01) ==
LOC: ER 11:01
PROVIDERS: Emergency Medicine; Nurse Practitioner
DX: U07.1 COVID-19 (principal); M54.12 Radiculopathy, cervical region; Z79.899 Other long term (current) drug therapy; Z87.891 Personal history of nicotine dependence; Z91.013 Allergy to seafood; Z88.8 Allergy status to other drugs, medicaments and biological substances